=== PATIENT | female | born 1935 | race Hispanic/Latino ===

== ENCOUNTER 2017-03-01 11:18 | Outpatient (CLI) | payer MEDICARE ==
--- NOTE | 2017-03-01 16:03 | Mammography Report ---
BILATERAL DIGITAL SCREENING MAMMOGRAM with CAD: 03/01/17 11:18:00 CLINICAL: Routine screening. COMPARISON:None available. FINDINGS: The breasts are almost entirely fatty.Bilateral benign vascular calcifications. No mass, architectural distortion or suspicious calcifications. IMPRESSION: No mammographic evidence of malignancy. BI-RADS CATEGORY: 2 -- Benign RECOMMENDATION: Routine mammographic screening in one year. COMMENT: Patient follow-up letters are generated by our [place] application.
== END 2017-03-01 11:19 | disposition home or self-care (01) ==
LOC: SPVWC 11:18
PROVIDERS: ATTEND Family Medicine
DX: Z12.31 Encounter for screening mammogram for malignant neoplasm of breast (principal)
CPT/HCPCS: 77067; G0202

== ENCOUNTER 2019-06-07 13:17 | Outpatient (CLI) | payer MEDICARE ==
--- NOTE | 2019-06-07 16:13 | Mammography Report ---
DEXA BONE DENSITY SCAN INDICATION: who. Postmenopausal COMPARISON: None available. LUMBAR SPINE (L1-L3): Bone mineral density (BMD) is 0.965 g/cm2. T-score is -0.5 (standard deviations of Young Adult mean). Z-score is +2.2 (standard deviations of Age Matched mean). The L4 vertebral body was excluded as an outlier because of endplate sclerosis at L5-S1. LEFT HIP: Total bone mineral density (BMD) is 0.835 g/cm2. T-score is -0.9 (standard deviations of Young Adult mean). Z-score is +1.3 (standard deviations of Age Matched mean). LEFT FEMORAL NECK BMD is 0.727g/cm2 with a T score of -1.1 and a Z score of +1.3. IMPRESSION: 1. WHO Classification: Osteopenia with increased fracture risk based on left femoral neck measurement s. 2. WHO Classification: Normal with normal fracture risk based on spine measurements. Signer Name: Mukesh Rogers MD Signed: 06/07/2019 4:09 PM Workstation Name: [id number]
== END 2019-06-07 13:18 | disposition home or self-care (01) ==
LOC: SPVWC 13:17
PROVIDERS: ATTEND Family Medicine
DX: M85.88 Other specified disorders of bone density and structure, other site (principal); M81.0 Age-related osteoporosis without current pathological fracture; Z78.0 Asymptomatic menopausal state
CPT/HCPCS: 77080